=== PATIENT | male | born 1945 | race Caucasian/White ===

== ENCOUNTER → 2016-10-04 | Outpatient (CLI) | payer MEDICARE, OTHER | END | disposition home or self-care (01) | LOC: GMAB 11:07 | PROVIDERS: ATTEND Family Medicine | DX: Z12.5 Encounter for screening for malignant neoplasm of prostate (principal); I10 Essential (primary) hypertension; E29.9 Testicular dysfunction, unspecified | CPT/HCPCS: 84403; 84443; G0103 ==

== ENCOUNTER → 2017-01-17 | Outpatient (CLI) | payer MEDICARE, OTHER | END | disposition home or self-care (01) | LOC: GMAB 10:29 | PROVIDERS: ATTEND Family Medicine | DX: E29.9 Testicular dysfunction, unspecified (principal) ==

== ENCOUNTER → 2017-10-07 | Outpatient (CLI) | payer MEDICARE, OTHER | LOC: GMAE 10:39 | PROVIDERS: ATTEND Family Medicine | DX: I10 Essential (primary) hypertension (principal); E29.9 Testicular dysfunction, unspecified; Z12.5 Encounter for screening for malignant neoplasm of prostate | CPT/HCPCS: 84403; 84443; G0103 ==

== ENCOUNTER → 2019-04-08 | Outpatient (CLI) | payer MEDICARE, BC | LOC: GMAE 10:19 | PROVIDERS: ATTEND Family Medicine | DX: Z12.5 Encounter for screening for malignant neoplasm of prostate (principal); I10 Essential (primary) hypertension; E29.9 Testicular dysfunction, unspecified | CPT/HCPCS: 84403; 84443; G0103 ==

== ENCOUNTER → 2019-05-01 | Outpatient (CLI) | payer MEDICARE, BC ==
--- NOTE | 2019-05-01 19:29 | US ---
EXAM DESCRIPTION: Aorta: Ultrasound. CLINICAL HISTORY: ENCOUNTER FOR SCREENING FOR OTHER DISORDER COMPARISON: CT abdomen and pelvis May 2012. TECHNIQUE: Transcutaneous scanning: Two-dimensional and Doppler modes. FINDINGS: Abdominal aorta diameter - Proximal: 2.9 x 2.7 cm. Mid: 2.7 x 2.6 cm. Distal: 3.0 x 2.9 cm. Common Iliac diameter - Right: 12.3 mm. Left: 13.6 mm. Other: Atherosclerotic irregularities of the intima throughout the aorta and into the proximal common iliac arteries.. IMPRESSION: 1. 3.0 cm abdominal aortic aneurysm. Recommend follow-up every 3 years. Reference: J Am Long Radiol 2013;10:789-794. 2. 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 Electronically signed by: Pedrito Wilde MD 05/01/2019 7:28 PM ADMINISTRATIVE HEARING OFFICER
== END ==
LOC: US 10:00
PROVIDERS: ATTEND Family Medicine
DX: Z13.89 Encounter for screening for other disorder (principal); I71.4 Abdominal aortic aneurysm, without rupture; I77.89 Other specified disorders of arteries and arterioles; M85.9 Disorder of bone density and structure, unspecified

== ENCOUNTER → 2019-10-12 | Outpatient (CLI) | payer MEDICARE, BC | LOC: GMAE 16:52 | PROVIDERS: ATTEND Family Medicine | DX: E29.9 Testicular dysfunction, unspecified (principal) ==

== ENCOUNTER → 2020-04-21 | Outpatient (CLI) | payer MEDICARE, BC | LOC: GMAE 14:33 | PROVIDERS: ATTEND Family Medicine | DX: Z12.5 Encounter for screening for malignant neoplasm of prostate (principal); I10 Essential (primary) hypertension; E29.9 Testicular dysfunction, unspecified | CPT/HCPCS: 84403; 84443; G0103 ==